=== PATIENT | female | born 1970 | race Caucasian/White ===

== ENCOUNTER 2020-09-27 22:22 | Emergency (ER) | payer OTHER ==
[~2020-09-27] VITALS: Ht 152.4 cm; Wt 47.6 kg
[~2020-09-27 22:22] MED LIST: CIPROFLOXACIN500 M1; CYMBALTA60 MG PO; EFFEXOR 5050 MG/1 T1 PO; FLEXERIL PO; HYDROXYZINE HCL10 M1 PO; IBUPROFEN 800800 MG PO; LEVOTHROID150 MC1 PO; NAPROSYN500 MG PO; NORCO 5-325 TA1 EACH PO; NORFLEX100 MG PO; PAXIL40 MG PO; PYRIDIUM200 MG; SEROQUEL 100 M100 MG PO; SEROQUEL 25 MG25 MG PO; VALIUM5 MG PO
[2020-09-27 22:58] LABS: ABSOLUTE NEUTROPHILS 5.1 thou/uL (1.4-8.2); BASOPHILS 1.4 % (0.0-2.0); EOSINOPHILS 1.2 % (0.0-3.0); HEMATOCRIT 46.2 % (37.0-47.0); MCH 28.8 pg (26.0-34.0); MCHC 32.4 g/dL (28.0-37.0); MCV 88.9 fL (80.0-100.0); MONOCYTES 5.3 % (1.0-8.0); PLATELET COUNT 209 thou/uL (150-400); POLYS 70.1 % (36.0-66.0); RDW 21.5 % (10.5-14.5); WBC 7.3 thou/uL (4.0-11.0)
[2020-09-27 23:06] LABS: ANION GAP 15 mmol/L (7-16); BUN 27 mg/dL (7-18); CALCIUM 9.8 mg/dL (8.5-10.1); CHLORIDE 101 mmol/L (98-107); CO2 21 mmol/L (21-32); CREATININE 1.7 mg/dL (0.6-1.0); GLUCOSE 121 mg/dL (74-106); POTASSIUM 4.5 mmol/L (3.5-5.1); SODIUM 137 mmol/L (136-145)
[2020-09-27] MEDS ORDERED: CARVEDILOL12.5 MG PO (23:06)
[2020-09-27 23:16] LABS: ALBUMIN 3.5 g/dL (3.4-5.0); MAGNESIUM 2.3 mg/dL (1.8-2.4); SGOT 38 U/L (15-37); SGPT 26 U/L (30-65); TOTAL BILIRUBIN 0.6 mg/dL (0.2-1.0); TOTAL PROTEIN 7.4 g/dL (6.4-8.2); TROPONIN-I <0.06 ng/mL (<0.06)
[2020-09-28 02:07] VITALS: BP 126/77
--- NOTE | 2020-09-28 07:39 | EKG ---
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
--- NOTE | 2020-09-28 07:40 | EKG ---
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1970 Requested By: Tj Stout Order Number: [id number] MD: Hipolito Clark Measurements Intervals [place] Rate: 89 P: 59 TN: 164 QRS: 69 QRSD: 101 T: 242 QT: 383 QTc: 467 Interpretive Statements Sinus rhythm Ventricular bigeminy Probable left atrial enlargement Anteroseptal infarct, old Nonspecific repol abnormality, diffuse leads Compared to ECG 09/27/2020 23:02:46 Myocardial infarct finding now present Early repolarization now present Atrial fibrillation no longer present Electronically Signed On 09-28-2020 7:39:53 CDT by Hipolito Clark [email or web address] <ELECTRONICALLY SIGNED> By: Hipolito Clark MD, [facility] 09/28/20 0739 230 02 Hipolito Clark MD, [facility] /EPI
--- NOTE | 2020-09-28 08:37 | EKG ---
[place] [address] [place] [address] ELECTROCARDIOGRAM REPORT Name: STEPHANY GRAVES [facility] [id number] Admission: 09/27/20 Attend Phys: Discharge: 09/28/20 Date of : 74 Report #: [id number] 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1970 Requested By: Tj Stout Order Number: [id number] MD: Hipolito Clark Measurements Intervals [place] Rate: 54 P: 62 [place]: 179 QRS: 82 QRSD: 101 T: -17 QT: 459 QTc: 435 Interpretive Statements Sinus rhythm Ventricular trigeminy Anteroseptal infarct, old Borderline repolarization abnormality Compared to ECG 09/27/2020 23:03:51 No significant changes Electronically Signed On 09-28-2020 8:37:17 CDT by Hipolito Clark [email or web address] <ELECTRONICALLY SIGNED> By: Hipolito Clark MD, [facility] 09/28/20 0837 014 0146 Hipolito Clark MD, FACC /EPI
--- NOTE | 2020-09-28 15:43 | EKG ---
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 : 1970 Requested By: Tj Stout Order Number: [id number] MD: Hipolito Clark Measurements Intervals [place] Rate: 149 P: RI: QRS: 85 QRSD: 105 T: 265 QT: 325 QTc: 512 Interpretive Statements Suspect atrial flutter 2:1 block Anteroseptal infarct, old Repol abnrm suggests ischemia, diffuse leads Prolonged QT interval No previous ECG available for comparison Electronically Signed On 09-28-2020 15:43:21 CDT by Hipolito Clark [email or web address] <ELECTRONICALLY SIGNED> By: Hipolito Clark MD, [facility] 09/28/20 1543 2227 26 Hipolito Clark MD, FACC /EPI
--- NOTE | 2020-09-28 15:44 | EKG ---
[place] [address] [facility] [place] [address] ELECTROCARDIOGRAM REPORT Name: STEPHANY GRAVES [facility] [id number] Admission: 09/27/20 Attend Phys: Discharge: 09/28/20 Date of : 74 Report #: [id number] 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1970 Requested By: Tj Stout Order Number: [id number] MD: Hipolito Clark Measurements Intervals [place] Rate: 147 P: LA: QRS: 79 QRSD: 105 T: 265 QT: 328 QTc: 514 Interpretive Statements Suspect atrial flutter 2:1 block Nonspecific repol abnormality, diffuse leads Prolonged QT interval Compared to ECG 09/27/2020 22:27:08 Possible ischemia no longer present Electronically Signed On 09-28-2020 15:43:51 CDT by Hipolito Clark [email or web address] <ELECTRONICALLY SIGNED> By: Hipolito Clark MD, [facility] 09/28/20 1543 D: [id number] Hipolito Clark MD, FACC /EPI
== END 2020-09-28 02:14 | disposition home or self-care (01) ==
LOC: ER 22:22
PROVIDERS: Emergency Medicine
DX: I47.1 Supraventricular tachycardia (principal); F17.210 Nicotine dependence, cigarettes, uncomplicated; Z90.89 Acquired absence of other organs; Z79.899 Other long term (current) drug therapy; Z88.6 Allergy status to analgesic agent; Z88.0 Allergy status to penicillin

== ENCOUNTER 2020-10-06 11:22 | Emergency (ER) | payer OTHER ==
[~2020-10-06] VITALS: Ht 152.4 cm; Wt 54.4 kg
[~2020-10-06 11:22] MED LIST changes: +CARVEDILOL12.5 MG PO
[2020-10-06] MEDS ORDERED: IRON325 PO (11:39)
[2020-10-06 12:06] LABS: HEMATOCRIT 46.5 % (37.0-47.0); HEMOGLOBIN 14.7 gm/dL (12.0-15.0); MCH 28.6 pg (26.0-34.0); MCHC 31.7 g/dL (28.0-37.0); MCV 90.2 fL (80.0-100.0); PLATELET COUNT 232 thou/uL (150-400); RBC 5.15 mil/uL (4.20-5.00); RDW 21.1 % (10.5-14.5); WBC 6.4 thou/uL (4.0-11.0)
[2020-10-06 12:43] LABS: ANION GAP 12 mmol/L (7-16); BUN 19 mg/dL (7-18); CALCIUM 8.1 mg/dL (8.5-10.1); CHLORIDE 111 mmol/L (98-107); CO2 18 mmol/L (21-32); CREATININE 1.2 mg/dL (0.6-1.0); GLUCOSE 83 mg/dL (74-106); POTASSIUM 3.4 mmol/L (3.5-5.1); SODIUM 141 mmol/L (136-145)
[2020-10-06 12:53] LABS: ALBUMIN 2.5 g/dL (3.4-5.0); MAGNESIUM 1.7 mg/dL (1.8-2.4); SGOT 28 U/L (15-37); SGPT 19 U/L (14-59); TOTAL BILIRUBIN 0.3 mg/dL (0.2-1.0); TOTAL PROTEIN 5.5 g/dL (6.4-8.2); TROPONIN-I <0.06 ng/mL (<0.06)
[2020-10-06 13:39] VITALS: BP 110/86
[2020-10-06 14:17] LABS: ABSOLUTE NEUTROPHILS 4.5 thou/uL (1.4-8.2); LARGE PLATELETS FEW
[2020-10-06 14:18] LABS: ANISOCYTOSIS 2+; POLYCHROMASIA 1+
--- NOTE | 2020-10-06 16:06 | EKG ---
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 A. Flutter 2:1 block Anteroseptal infarct, old Nonspecific repol abnormality, diffuse leads Compared to ECG 09/28/2020 01:46:44 Sinus rhythm no longer present Ventricular premature complex(es) no longer present Myocardial infarct finding still present Electronically Signed On 10-06-2020 16:06:07 CDT by Hipolito Clark [email or web address] <ELECTRONICALLY SIGNED> By: Hipolito Clark MD, FAC 10/06/20 1606 1125 1125 Hipolito Clark MD, [facility] /EPI
== END 2020-10-06 13:50 | disposition home or self-care (01) ==
LOC: ER 11:22
PROVIDERS: Emergency Medicine
DX: I47.1 Supraventricular tachycardia (principal); I49.5 Sick sinus syndrome; I34.1 Nonrheumatic mitral (valve) prolapse; Z90.89 Acquired absence of other organs; Z79.899 Other long term (current) drug therapy; Z88.0 Allergy status to penicillin; Z88.8 Allergy status to other drugs, medicaments and biological substances; Z88.6 Allergy status to analgesic agent; Z91.041 Radiographic dye allergy status; Z87.891 Personal history of nicotine dependence

== ENCOUNTER 2020-10-17 11:10 | Emergency (ER) | payer OTHER ==
[~2020-10-17] VITALS: Ht 152.4 cm; Wt 44.4 kg
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
[~2020-10-17 11:10] MED LIST changes: +IRON325 PO
[2020-10-17 12:13] LABS: ABSOLUTE NEUTROPHILS 4.4 thou/uL (1.4-8.2); BASOPHILS 1.2 % (0.0-2.0); EOSINOPHILS 0.6 % (0.0-3.0); HEMATOCRIT 41.3 % (37.0-47.0); HEMOGLOBIN 13.4 gm/dL (12.0-15.0); LYMPHOCYTES 20.3 % (24.0-44.0); MCH 29.2 pg (26.0-34.0); MCHC 32.5 g/dL (28.0-37.0); MCV 89.6 fL (80.0-100.0); MONOCYTES 6.3 % (1.0-8.0); POLYS 71.6 % (36.0-66.0); RBC 4.61 mil/uL (4.20-5.00); WBC 6.1 thou/uL (4.0-11.0)
[2020-10-17 12:31] LABS: PLATELET COUNT 214 thou/uL (150-400)
[2020-10-17 12:35] LABS: CALCIUM 9.5 mg/dL (8.5-10.1); CREATININE 1.9 mg/dL (0.6-1.0); POTASSIUM 4.7 mmol/L (3.5-5.1)
[2020-10-17 12:39] LABS: ALBUMIN 3.2 g/dL (3.4-5.0); MAGNESIUM 2.4 mg/dL (1.8-2.4); TOTAL BILIRUBIN 0.4 mg/dL (0.2-1.0); TOTAL PROTEIN 6.5 g/dL (6.4-8.2)
[2020-10-17 14:32] LABS: AMP/METHAMP POSITIVE (Negative); BARBITURATES Negative (Negative); BENZODIAZEPINES Negative (Negative); COCAINE Negative (Negative); METHADONE Negative (Negative); OPIATES Negative (Negative); PCP POSITIVE (Negative)
[2020-10-17] MEDS ORDERED: CARVEDILOL12.5 MG PO (16:00)
[2020-10-17] MEDS ORDERED: LEVO-T100 MCG PO (16:02)
[2020-10-17 16:16] VITALS: BP 143/90
--- NOTE | 2020-10-18 07:34 | EKG ---
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1970 Requested By: Jovanna Rosario Order Number: [id number] MD: Gustavo Moore Measurements Intervals [place] Rate: 148 P: MT: QRS: 91 QRSD: 106 T: -86 QT: 326 QTc: 512 Interpretive Statements Supraventricular tachycardia, probably atrial flutter 2:1 conduction Nonspecific intraventricular conduction delay Nonspecific ST and T wave abnormality Compared to ECG 10/06/2020 11:25:43 No significant change was found Electronically Signed On 10-18-2020 7:34:19 CDT by Gustavo Moore [email or web address] <ELECTRONICALLY SIGNED> By: Gustavo Moore MD, [facility] 10/18/20 0734 1110 Gustavo Moore MD, [facility] /EPI
--- NOTE | 2020-10-18 11:08 | EKG ---
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1970 Requested By: Jovanna Rosario Order Number: [id number] MD: Hipolito Clark Measurements Intervals [place] Rate: 89 P: 69 [place]: 154 QRS: 89 QRSD: 105 T: 258 QT: 496 QTc: 604 Interpretive Statements Sinus bradycardia Ventricular tachycardia, unsustained Borderline repolarization abnormality Compared to ECG 10/17/2020 11:10:36 Ventricular tachycardia now present Atrial flutter no longer present Supraventricular tachycardia no longer present Intraventricular conduction delay no longer present ST (T wave) deviation no longer present Electronically Signed On 10-18-2020 11:08:37 CDT by Hipolito Clark [email or web address] <ELECTRONICALLY SIGNED> By: Hipolito Clark MD, [facility] 10/18/20 1108 1249 1249 Hipolito Clark MD, [facility] /EPI
== END 2020-10-17 16:16 | disposition home or self-care (01) ==
LOC: ER 11:10
PROVIDERS: Emergency Medicine
DX: I47.1 Supraventricular tachycardia (principal); E03.9 Hypothyroidism, unspecified; F19.10 Other psychoactive substance abuse, uncomplicated; F17.210 Nicotine dependence, cigarettes, uncomplicated; Z90.89 Acquired absence of other organs; Z79.899 Other long term (current) drug therapy; Z88.0 Allergy status to penicillin; Z88.6 Allergy status to analgesic agent; Z91.041 Radiographic dye allergy status; Z98.890 Other specified postprocedural states

== ENCOUNTER 2020-11-03 23:03 | Emergency (ER) | payer OTHER ==
[~2020-11-03] VITALS: Ht 152.4 cm; Wt 45.4 kg
[~2020-11-03 23:03] MED LIST changes: +LEVO-T100 MCG PO
[2020-11-04] MEDS ORDERED: PREDNISONE 20 M20 M1 PO (00:01)
[2020-11-04] MEDS ORDERED: VENTOLIN HFA INH8 GM INH (00:01)
[2020-11-04 00:54] VITALS: BP 121/75
== END 2020-11-04 00:56 | disposition home or self-care (01) ==
LOC: ER 23:03
DX: J06.9 Acute upper respiratory infection, unspecified (principal); Z20.822 Contact with and (suspected) exposure to COVID-19; F17.210 Nicotine dependence, cigarettes, uncomplicated; Z72.0 Tobacco use; Z90.89 Acquired absence of other organs; Z79.899 Other long term (current) drug therapy; Z88.0 Allergy status to penicillin; Z88.5 Allergy status to narcotic agent; Z91.041 Radiographic dye allergy status; Z88.6 Allergy status to analgesic agent